=== PATIENT | male | born 1980 | race American Indian/Alaskan Native ===

== ENCOUNTER 2018-06-25 11:32 | Emergency (ER) | payer BC ==
[2018-06-25 11:40] VITALS: BP 105/61
[2018-06-25] MEDS ORDERED: PERCOCET 5/325 PO ONE (12:19)
--- NOTE | 2018-06-25 12:28 | Emergency Department Report ---
ED Extremity Problem HPI - General Chief complaint: Extremity Injury, Lower Stated complaint: ANKLE PAIN EXTREME Source: patient Mode of arrival: Ambulatory Limitations: No Limitations - History of Present Illness Initial comments: Patient is a 37-year-old man who is presenting with right ankle pain. Patient states he stepped off of a curb and twisted his ankle. Patient appears pop sensation. Patient has 8 out of 10 pain most in the lateral right ankle at this time. Patient has no other injuries. Quality: aching, sharp Worsens with: weight bearing, walking - Related Data Previous Rx's Medication Instructions Recorded Last Taken Type HYDROcodone/APAP 5-325 [[place] 1 each PO Q6HR PRN #15 tablet 06/25/18 Unknown Rx 5/325] Ibuprofen [Motrin] 800 mg PO Q8HR PRN #20 tablet 06/25/18 Unknown Rx Allergies Allergy/AdvReac Type Severity Reaction Status Date / Time No Known Allergies Allergy Unverified 06/25/18 11:40 ED Review of Systems ROS: Stated complaint: ANKLE PAIN EXTREME Other details as noted in HPI Comment: All other systems reviewed and negative ED Past Medical Hx - Past Medical History Previous Medical History?: No - Social History Smoking Status: Current Every Day Smoker Substance Use Type: Alcohol - Medications Home Medications: Home Medications Medication Instructions Recorded Confirmed Last Taken Type HYDROcodone/APAP 5-325 [[place] 1 each PO Q6HR PRN #15 tablet 06/25/18 Unknown Rx 5/325] Ibuprofen [Motrin] 800 mg PO Q8HR PRN #20 tablet 06/25/18 Unknown Rx ED Physical Exam - General Limitations: No Limitations General appearance: alert, in no apparent distress - Head Head exam: Present: atraumatic, normocephalic - Eye Eye exam: Present: normal appearance - ENT ENT exam: Present: mucous membranes moist - Neck Neck exam: Present: normal inspection - Respiratory Respiratory exam: Present: normal lung sounds bilaterally. Absent: respiratory distress - Cardiovascular Cardiovascular Exam: Present: regular rate, normal rhythm. Absent: systolic murmur, diastolic murmur, rubs, gallop - GI/Abdominal GI/Abdominal exam: Present: soft, normal bowel sounds - Rectal Rectal exam: Present: deferred - Extremities Exam Extremities exam: Present: tenderness (and pain with swelling to the right lateral malleolus). Absent: normal inspection - Back Exam Back exam: Present: normal inspection - Neurological Exam Neurological exam: Present: alert, oriented X3 - Psychiatric Psychiatric exam: Present: normal affect, normal mood - Skin Skin exam: Present: warm, dry, intact, normal color. Absent: rash ED Course Vital Signs 06/25/18 11:37 Temperature 98.6 F Pulse Rate 80 Respiratory 16 Rate Blood Pressure 105/61 O2 Sat by Pulse 98 Oximetry ED Medical Decision Making - Radiology Data interpreted by me: X-ray of the right ankle shows a nondisplaced fracture to the distal fibula. - Medical Decision Making Patient was placed in a posterior short leg splint with side stirrups patient be discharged home with hydrocodone. Patient to follow-up with Dr. Carrillo with orthopedic surgery. This constitutes fracture care Critical care attestation.: If time is entered above; I have spent that time in minutes in the direct care of this critically ill patient, excluding procedure time. ED Disposition Clinical Impression: Fibula fracture Qualifiers: Encounter type: initial encounter Fibula location: distal Fracture type: closed Fracture morphology: unspecified fracture morphology Laterality: right Qualified Code(s): S82.831A - Other fracture of upper and lower end of right fibula, initial encounter for closed fracture Disposition: DC-01 TO HOME OR SELFCARE Is pt being admited?: No Does the pt Need Aspirin: No Condition: Stable Instructions: Ankle Fracture (ED) Referrals: DEYANIRA CARRILLO MD [Staff Physician] - 3-5 Days Time of Disposition: 12:29
--- NOTE | 2018-06-25 12:49 | XRay Report ---
FINAL REPORT EXAM: XR ANKLE 3+V RT HISTORY: fracture TECHNIQUE: Three views right ankle Comparison: None FINDINGS: Normal bony mineralization. Oblique fracture distal fibular metaphysis extends into the lateral joint margin. Approximately 2 millimeter offset distal fracture fragment. [place] is intact. The medial mortise measures 4.2 millimeters whereas superior mortise measures 3.7 millimeters. Marked soft tissue swelling is present. No posterior malleolar fracture identified. No medial malleolus fracture or widening of the medial joint margin noted. Accessory ossicle to the cuboid. IMPRESSION: Mg B fracture right ankle. Question B1 versus B2. Oblique fracture distal fibular metaphysis with approximately 2 millimeter offset distal fracture fragment. Marked soft tissue swelling. Questionable minimal widening of the medial mortise suspicious for deltoid injury. No definite posterior malleolar fracture.
== END 2018-06-25 13:37 | disposition home or self-care (01) ==
LOC: ED 11:32
DX: S82.831A Other fracture of upper and lower end of right fibula, initial encounter for closed fracture (principal); F17.200 Nicotine dependence, unspecified, uncomplicated; X58.XXXA Exposure to other specified factors, initial encounter; Y93.89 Activity, other specified; Y92.89 Other specified places as the place of occurrence of the external cause; Y99.8 Other external cause status
CPT/HCPCS: 99283